=== PATIENT | female | born 1950 | race Caucasian/White ===

== ENCOUNTER → 2016-06-19 | Outpatient (CLI) | payer MEDICARE, OTHER ==
[~2016-06-19] MED LIST: AMLO10TA2 PO; ASPI-557 PO; CART5DRO BOTH EYES; GLIM2TAB3 PO; LISI1TAB11 PO; METF10002 PO; METO25TA6 PO; ROSU20TA PO
== END ==
LOC: WC.BC 08:45
DX: Z12.31 Encounter for screening mammogram for malignant neoplasm of breast (principal)
CPT/HCPCS: 77063; G0202